=== PATIENT | female | born 1965 | race Caucasian/White ===

== ENCOUNTER 2023-09-07 10:40 | Outpatient (AMB) | payer OTHER, SELFPAY ==
--- NOTE | 2023-09-07 10:37 | MHC.OFFWIV ---
Intake Vital Signs 09/07/23 10:43 Height 5 ft 2 in Weight 127 lb BMI 23.2 BP 120/60 Blood Pressure Location Lt brachial Position Sitting Pulse 51 Pulse Source Pulse Oximeter Temp 98.1 F Temp Source Temporal Artery Scan Pulse Oximetry (%) 99 Oxygen Delivery Method Room Air Intake Visit Reasons: EP neck pain radiates down lft arm Intake Note: pt is here today for neck pain radiates down lft arm started 10 days ago Patient Tobacco Use Status: Never used Tobacco Allergies No Known Allergies Allergy (Verified 09/07/23 10:46) Do you need a note to return to daycare/school/sports/work: Yes HPI EP neck pain radiates down lft arm HPI Details This is a 58 year old female patient who presents today with a 10 day history of left sided neck/trapezius pain which radiates down her shoulder, into axilla, and down upper arm. This does not extend to her hand. No numbness or paresthesias. Reports a squeeezing-type sensation down arm. Denies any trauma or inciting event to this. She has been taking Ibuprofen and applying IcyHot, however this his not helped. History of C5/6, C6/7 disc herniation on the left many years ago. She went to [facility] physical therapy with good effect. [facility] Social History Patient Tobacco Use Status: Never used Tobacco Review of Systems Const All systems reviewed & are unremarkable except as noted in HPI and below Physical Exam Vital Signs: Last Vital Signs Temp 98.1 F 09/07/23 10:43 Pulse 51 09/07/23 10:43 BP 120/60 09/07/23 10:43 Pulse Ox 99 09/07/23 10:43 Oxygen Delivery Method Room Air 09/07/23 10:43 BMI result Body Mass Index 23.2 Const General: cooperative, healthy appearing and no acute distress Nutritional Appearance: average body habitus HEENT Head: Yes normal to inspection Neck Neck: Yes no lymphadenopathy Resp Effort & Inspection: normal respiratory effort Back/Spine/Pelvis Other: spurling positive with increased pain into left side of neck and down shoulder into axilla. 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 Cervical Spine: cervical muscular tenderness (left trap tenderness to palp) and pain with cervical ROM (pain with extension, no C-spine tenderness) Thoracic/Lumbar Spine: thoraco-lumbar ROM normal Skin General skin exam: no rashes or lesions noted Neuro Motor exam (neuro): 5/5 motor strength present throughout and Normal motor muscle tone present throughout Extrem Other: Left shoulder exam: General: Yes capillary refill normal and Yes no clubbing, cyanosis or edema Psych Appearance: grossly normal Mental Status: mental status grossly normal Speech and movement: Normal speech and movement present Assessment & Plan Assessment & Plan (1) Left cervical radiculopathy: Code(s): M54.12 - Radiculopathy, cervical region Plan: Symptoms consistent with a left cervical radiculopathy. Has had disc herniations left C5/6, C6/7 years ago. She did PT with good benefit. Cervical spine XR obtainted today shows degenerative changes at C5-C7. She does not establish care with new PCP Rip [facility] [employer] for several months. I am going to refer her back to [facility] for further evaluation and also for course of physical therapy. In the meantime, we discussed continued conservative measures for this. I am going to start her on a short course of Prednisone and also Cyclobenzaprine at HS. We reviewed indications, use, possible s/e of medications. We discussed using heat application, gentle stretching/ROM exercises, and topical products as needed. She will f/u with [facility] and PCP, and can return to the [place] clinic if needed in the interim if symptoms worsen or new symptoms develop. She agrees to plan. Orders: Orders XR cervical spine 2V Today M54.12 - Radiculopathy, cervical region PT Evaluation and Treatment Today M54.12 - Radiculopathy, cervical region Referrals Orthopedics Referral M54.12 - Radiculopathy, cervical region Medications: New cyclobenzaprine Take one tab at bedtime as needed for muscle pain/spasms. 5 mg PO BEDTIME PRN 10 tabs 0RF muscle spasm M54.12 - Radiculopathy, cervical region prednisone 20 mg PO BID 5 days 10 tabs 0RF M54.12 - Radiculopathy, cervical region Coding Level of Care Code Est Pt Level 4 (50696) Diagnoses Left cervical radiculopathy M54.12
[2023-09-07 10:43] VITALS: BP 120/60; PULSE 51; TEMP 36.7; O2SAT 99; BMI 23.2
== END 2023-09-07 11:54 | disposition home or self-care (01) ==
PROVIDERS: PCP Nurse Practitioner Family; Visit Provider Nurse Practitioner Family
DX: M54.12 Radiculopathy, cervical region (principal)
CPT/HCPCS: 99214

== ENCOUNTER 2023-09-07 10:58 | Outpatient (REF) | payer OTHER, SELFPAY ==
--- NOTE | ~2023-09-07 | XR_ITS ---
EXAMINATION: XR CERVICAL SPINE CLINICAL INFORMATION: Cervical radiculopathy COMPARISON: None available. TECHNIQUE: 3 views of the cervical spine were obtained. FINDINGS: There is straightening of cervical lordosis with narrowing cough C5-C6 and C6-C7 intervertebral disc spaces, no evidence of spondylolysis or listhesis and no uncovertebral osteophytosis. Soft tissues are unremarkable. Odontoid views reveal no asymmetry. XR/XR cervical spine 2V IMPRESSION: Degenerative changes at the level of C5-C7
== END 2023-09-07 10:59 | disposition home or self-care (01) ==
LOC: HO.HMGCX 10:58
PROVIDERS: Visit Provider Nurse Practitioner Family
DX: M54.12 Radiculopathy, cervical region (principal)
CPT/HCPCS: 72040

== ENCOUNTER 2024-01-23 09:54 | Outpatient (AMB) | payer OTHER, SELFPAY ==
--- NOTE | 2024-01-23 10:27 | AM.OFFWIN_ITS ---
Intake Vital Signs 01/23/24 10:28 Height 5 ft 2 in Weight 136 lb BMI 24.9 BP 110/62 Blood Pressure Location Lt brachial Position Sitting Pulse 57 Pulse Source Pulse Oximeter Temp 98.0 F Temp Source Oral Pulse Oximetry (%) 98 Oxygen Delivery Method Room Air Intake Visit Reasons: EP UTI? Intake Note: pt c/o urinary urgency, frequency and discomfort. Ongoing for almost 2 weeks Patient Tobacco Use Status: Never used Tobacco Allergies amoxicillin [From Augmentin] Allergy (Intermediate, Verified 01/23/24 10:36) Rash clavulanic acid [From Augmentin] Allergy (Intermediate, Verified 01/23/24 10:36) Rash Do you need a note to return to daycare/school/sports/work: No HPI EP UTI? HPI Details This note is constructed using voice recognition software. While every effort has been made to ensure accuracy, social worker delinquency prevention errors may have been included. The patient is a 58 year old female who presents to the clinic today with urinary frequency, urgency for the past 2 weeks. She notes that she does have an extensive history bladder issues having had a bladder sling, she is status post hysterectomy, and she has been dealing with hot flashes and postmenopausal symptoms for the past several years. She had been using estradiol cream as prescribed for postmenopausal symptoms, and the symptoms seemed to get better, however when they restarted she did restart her cream about one-week ago. Since restarting the cream she has not had any improvement in the urinary symptoms quite yet. She denies pain with urination, change in odor, volume, collar. She is hydrating well and drinking slightly more to help flush her system through. She does have an appointment coming up with her urogynecologist in March and has an appointment with her primary care provider in the end of February. [facility] Social History Patient Tobacco Use Status: Never used Tobacco Review of Systems Const All systems reviewed & are unremarkable except as noted in HPI and below Physical Exam Vital Signs: Last Vital Signs Temp 98.0 F 01/23/24 10:28 Pulse 57 01/23/24 10:28 BP 110/62 01/23/24 10:28 Pulse Ox 98 01/23/24 10:28 Oxygen Delivery Method Room Air 01/23/24 10:28 BMI result Body Mass Index 24.9 Const General: cooperative, healthy appearing, comfortable, no acute distress and well developed Orientation/consciousness: patient oriented x3 Limitations: no limitations Resp Effort & Inspection: normal respiratory effort and able to speak in complete sentences Neuro General: patient oriented x3 Results AMB Urinalysis, Automated UA Leukoctes 0 Annabella/uL Last Edit by Tamara Smith CCM on 01/23/24 10:54 UA Nitrite Negative Last Edit by Tamara Smith [facility] on 01/23/24 10:54 UA Urobilinogen 0.2 mg/dL Last Edit by Tamara Smith [facility] on 01/23/24 10:54 UA Protein 0 mg/dL Last Edit by Tamara Smith [facility] on 01/23/24 10:54 UA pH 6.0 Last Edit by Tamara Smith [facility] on 01/23/24 10:54 UA Blood 0 Rupesh/uL Last Edit by Tamara Smith [facility] on 01/23/24 10:54 UA Specific [place] 1.010 Last Edit by Tamara Smith [facility] on 01/23/24 10:54 UA Ketone Negative Last Edit by Tamara Smith [facility] on 01/23/24 10:54 UA Bilirubin 0 mg/dL Last Edit by Tamara Smith [facility] on 01/23/24 10:54 UA Glucose 0 mg/dL Last Edit by Tamara Smith [facility] on 01/23/24 10:54 Assessment & Plan Assessment & Plan (1) Urinary frequency: Code(s): R35.0 - Frequency of micturition Plan: In office urinalysis dip inconsistent with UTI. Given patient's extensive history, this is likely more attributed to postmenopausal symptoms. She has restarted her estradiol cream, which I have advised her to continue. Advised her to consider [id number] urinalysis dip test strips to facilitate at- home testing to determine if she needs to have evaluation for urinary tract infection. Advised her to keep her appointment with Urogynecology in March and her appointment with primary care provider next month. Advised return to the clinic should her symptoms persist or worsen for in office evaluation. Plan See above for full details and plan. Orders: Orders AMB Urinalysis Automated Today Z13.9 - Encounter for screening, unspecified Coding Level of Care Code Est Pt Level 3 (19233) Diagnoses Urinary frequency R35.0
[2024-01-23 10:28] VITALS: BP 110/62; PULSE 57; TEMP 36.7; O2SAT 98; BMI 24.9
== END 2024-01-23 11:13 | disposition home or self-care (01) ==
PROVIDERS: PCP Nurse Practitioner Family; Visit Provider Registered Nurse
DX: Z13.9 Encounter for screening, unspecified (principal); R35.0 Frequency of micturition

== ENCOUNTER → 2024-01-23 09:54 | Outpatient (BNVA) | payer OTHER, SELFPAY | PROVIDERS: PCP Nurse Practitioner Family; Visit Provider Nurse Practitioner Family | DX: R35.0 Frequency of micturition (principal); R39.15 Urgency of urination; Z90.710 Acquired absence of both cervix and uterus | CPT/HCPCS: 81003 ==

== ENCOUNTER 2025-03-12 12:19 | Outpatient (AMB) | payer OTHER, SELFPAY ==
[2025-03-12 12:21] VITALS: BP 102/60; PULSE 57; RESP 14; TEMP 36.7; O2SAT 99; BMI 26.0
--- NOTE | 2025-03-12 12:21 | MHC.PC.OV ---
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 Required: No Accompanied by: Self / Same As Patient Allergies amoxicillin (From Augmentin) Allergy (Intermediate, Verified 01/23/24 10:36) Rash clavulanic acid (From Augmentin) Allergy (Intermediate, Verified 01/23/24 10:36) Rash Medication List - Last Reconciled 03/12/25 by ALBARO Barboza imatinib 400 mg PO DAILY Tobacco use date assessed: 03/12/25 Dental Screening Dental Screen Date: 03/12/25 Did you have a dental visit in the last 12 months?: Yes Did you have a dental problem in the last 6 months where you did not have access to dental care?: No Was dental information given to patient?: Patient has dentist 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 History of Present Illness The patient is a 52-year-old male presenting for a follow-up for hypertension. He reports that his home blood pressure readings are generally in the 130s and occasionally in the 120s, which is an improvement compared to his in-office readings which remain elevated. The patient has a known history of sleep apnea. Social History Health Maintenance - Patient will be referred for a full sleep study to evaluate his sleep apnea. Review of Systems Physical Exam General: Cooperative, healthy appearing, comfortable, no acute distress and well developed Orientation: Patient oriented x3 Limitations: No limitations Head: Normal to inspection Ears: Hearing grossly normal bilaterally Nose: Normal external nose present Face and sinus: Normal facial exam Eyes: Appearance normal, both eyes and all related structures Neck: Normal visual inspection and Yes full ROM Respiratory: Normal respiratory effort and able to speak in complete sentences. Clear to auscultation bilaterally Cardiovascular: Regular rate and rhythm. Normal S1 and S2 GI: Normal to inspection. Soft to palpation and nontender Skin: No rashes or lesions noted Neuro: Patient oriented x3 Extremities: Normal to inspection Results - Home Blood Pressure Monitoring: Patient-reported values are in the 130s, and sometimes 120s. Plan 1. Hypertension Although the patient reports improved home blood pressure readings in the 120-130s range, his in-office readings remain elevated. The plan is to increase his amlodipine dosage from 5 mg to 10 mg. He is instructed to recheck his blood pressure at home and report the values via the patient portal or by dropping them off at the office for further adjustments. Fasting labs will be ordered for the near future. 2. Sleep Apnea The patient has a known history of sleep apnea. A referral will be placed for a full sleep study. Discussion Notes I have reviewed the patient's blood pressure readings. Although his home readings are improving, his in-office pressure remains elevated, so I am increasing his amlodipine from 5 mg to 10 mg. I have instructed him to continue monitoring at home and send me the results. I will also order fasting labs and refer him for a full sleep study due to his history of sleep apnea. Patient Instructions - We are increasing your blood pressure medication, amlodipine, from 5 mg to 10 mg. - Please continue to check your blood pressure at home. - Send your blood pressure readings to us through the patient portal or by dropping them off at the office. - We will be ordering some fasting lab work for you to complete soon. - We will also refer you for a full sleep study to check on your sleep apnea. 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 1. Little interest or pleasure in doing things: not at all 2. Feeling down, depressed, or hopeless: not at all 3. Trouble falling or staying asleep, or sleeping too much: not at all 4. Feeling tired or having little energy: not at all 5. Poor appetite or overeating: not at all 6. Feeling bad about yourself - or that you are a failure or have let yourself or your family down: not at all 8. Moving or speaking so slowly that other people could have noticed. Or the opposite - being so fidgety or restless that you have been moving around a lot more than usual: not at all 9. Thoughts that you would be better off or of hurting yourself in some way: not at all Depression Screening Interpretation: Negative Depression Screening Done: Yes [id number] - PHQ-9 Billing: Yes Source: Developed by Drs. Casper Reynaga, Page Kovacs, Isrrael Ramirez and colleagues, with an educational morales from [employer]. Thrive Questionnaire Date Thrive assessed: 03/05/25 I am a: Patient What is your living situation today?: I have a steady place to live Within the past 12 months, did the food you bought not last and you didn't have the money to get more?: Never true Within the past 12 months, did you worry whether your food would run out before you got money to buy more?: Never true Do you have trouble paying for medicines?: No Do you have trouble getting transportation to medical appointments?: No Do you have trouble paying your heating and electricity bill?: No Do you have trouble taking care of your child, family member or friend?: No Do you have trouble with day-to-day activities such as bathing, preparing meals, shopping, managing finances, etc.?: No Are you currently unemployed and looking for a job?: No Are you interested in more education?: No Please select the resources that you would like help with: None Currently or been in a relationship where the following occur: No concerns reported THRIVE Score: 0 AUDIT C Alcohol Use Questionnaire (AUDIT-C) 1. How often do you have a drink containing alcohol?: Monthly or less 2. How many drinks containing alcohol do you have on a typical day when you are drinking?: 1 or 2 3. How often do you have six or more drinks on one occasion?: Never Total Score: 1 VIRGEN-7 AMB Questionnaire VIRGEN-7 Date VIRGEN - 7 assessed: 03/12/25 Feeling nervous, anxious, or on edge: 0 = Not at all Not being able to stop or control worryin = Not at all Worrying too much about different things: 0 = Not at all Trouble relaxin = Not at all Being so restless that it is hard to sit still: 0 = Not at all Becoming easily annoyed or irritable: 0 = Not at all Feeling afraid as if something awful might happen: 0 = Not at all Total VIRGEN-7 score (0-4 normal; 5-9 mild; 10-14 moderate; 15-21 severe): 0 Source: Developed by Drs. Casper Reynaga, Page Kovacs, Isrrael Ramirez and colleagues, with an educational morales from [employer]. VIRGEN-7 Assessment Billing VIRGEN-7 Assessment Tool: VIRGEN-7 Assessment [id number] Physical exam (Primary Care) Vital Signs: Last Vital Signs Temp 98.0 F 03/12/25 12:21 Pulse 57 03/12/25 12:21 Resp 14 03/12/25 12:21 BP 102/60 03/12/25 12:21 Pulse Ox 99 03/12/25 12:21 Oxygen Delivery Method Room Air 03/12/25 12:21 BMI result Body Mass Index 26.0 Tobacco/Smoking Status: Tobacco use Status Tobacco use date assessed 03/12/25 03/12/25 12:29 Patient Tobacco Use Status Never used Tobacco 03/12/25 12:29 e-Cigarette/Vaping Use Never Used 03/12/25 12:29 Depression Screening Interpretation: Negative Thrive Assessment: Date of Thrive Assessment Date Thrive assessed 03/05/25 03/12/25 12:29 Currently or been in a relationship where the following occur: No concerns reported Coding Level of Care Code New Pt Prev Care 40-64y(30582) Diagnoses Physical exam Z00.00 Vitamin D deficiency E55.9 Additional Codes VIRGEN-7 Assessment Billing - VIRGEN-7 Assessment Tool: VIRGEN-7 Assessment [id number] ([id number]) PHQ-9 - 75338 - PHQ-9 Billing: Yes ([id number]) Assessment & Plan Assessment & Plan (1) Physical exam: Code(s): Z00.00 - Encounter for general adult medical examination without abnormal findings Category: Medical (2) Vitamin D deficiency: Code(s): E55.9 - Vitamin D deficiency, unspecified Category: Medical Plan . Orders: Orders Complete Blood Count Auto Diff Today Z00.00 - Encounter for general adult medical examination without abnormal findings TSH reflex Free T4 Today Z00.00 - Encounter for general adult medical examination without abnormal findings Lipid Panel Today Z00.00 - Encounter for general adult medical examination without abnormal findings Comprehensive [place]. Panel Fast Today Z00.00 - Encounter for general adult medical examination without abnormal findings UA CC w/rflx Micro + Cult Today Z00.00 - Encounter for general adult medical examination without abnormal findings Vitamin D 25-OH Total Today E55.9 - Vitamin D deficiency, unspecified
--- OUTSIDE RECORDS SUMMARY | 2025-03-12 15:04 | XMS_ITS | Clinical Summary ---
Author Organization [facility] Address [address] [place] [phone] Phone Care Team Providers Care Unix System Administrator Name Role Phone Mauricio Jaeger MD Unavailable [phone] Man Xiong MD Unavailable [phone] Unknown, Unknown Primary Care Provider Unavai lable Allergies Active Allergy Reactions Criticality Noted Date Comments Amoxicillin-Pot Clavulanate Rash Low 02/16/20 18 Medications multivitamin per tablet ONE DAILY Orally Active Saccharomyces boulardii (PROBIOTIC, S.BOULARDII, ORAL)Indication s:one daily Take by mouth. Indications: one daily Active imatinib (GLEEVEC) 400 MG tablet Take 1 tablet by mouth daily. 3 9 Active estradioL (ESTRACE) 0.01 % (0.1 mg/gram) vaginal cream U 1 GRAM VAGINALLY D HS TK Q NIGHT FOR 2 WKS THEN 2 TIMES A WK 0 Active calcium carbonate-vitam in D3 (CALTRATE 600 PLUS D) 600 mg (1,500 mg)-800 unit Chew Take 1 tablet by mouth 2 (two) times a day. Active lansoprazole (PREVACID) 15 MG capsule Take 15 mg by mouth daily. 3 Active Active Problems Problem Noted Date Diagnosed Date Chronic myeloid leukemia 03/01/2023 023 History of cholecystectomy 03/01/2023 Overview (03/01/2023): January 2023 Slow transit constipation 02/21/2020 CML (chronic myelocytic leukemia) 02/16/2019 Immunizations Immunization Administration Dates Next Due COVID-19 (Pre-02/28) Pfizer Vaccine, Bivalent 12+ 02/01/2023,01/22/2022 COVID-19 (Pre-02/28) Pfizer Vaccine, mRNA, PF 02/13/2021,05/18/2020,04/27/2020 INFLUENZA, SPLIT VIRUS, TRIV ALENT W/ PRESERVATIVE IM 02/18/2016,02/20/2014 Influenza Quadrivalent MDCK Preservative Free IM 02/14/2018 Influenza Quadrivalent Prese rvative Free IM 02/11/2023,02/12/2022,02/13/2021,02/09,02/07/2019,02/21/2017 Influenza, Unspecified Formulation 02/12/2022 Pneumococcal conjugate PCV13 11/01/2018 Pneumococcal polysaccharide PPSV23 12/27/2018 Td (adult) 5 Lf Tetanus Toxo id, PF, Adsorbed 02/06/2007 Tdap 03/01/2013 Family History Medical History Relation Comments Throat cancer Brother 1 smoker/drinker No Known Problems Brother 2 Ankylosing spondylitis Daughter Crohn's disease Daughter HLA-B27 positive Daughter Juvenile polyarthritis Daughter Dementia Mother Breast cancer Sister ADD / ADHD Son Amputation Son MVA 2018 right l eg Relation Status Comments Brother 1 Brother 2 Alive Daughter Alive Father (Age 93) Mother (Age 91) Sister Alive Son Alive Social History Tobacco Use Types Packs/Day Years Used Date Smoking Tobacco: Never Smokeless Tobacco: Never Tobacco Cessation:Counseling Given: Not Answered Alcohol Use Standard Drinks/Week Comments Yes 0 (1 standard drink = 0.6 oz pur e alcohol) 1-2 drinks, monthly or less Child or Family Care Answer Date Record ed Do you have problems with on e of the following making it difficult for you to work, study, or receive health care? No 03/01/2023 Education Answer Date Recorded Are you interested in more education? Not on marco a e 03/05/2025 Are you concerned about learning? Not on file 03/05/2025 No 03/05/2025 No 03/05/2025 Food Answer Date Recorded Within the past 6 months we worried whether our food would run out before we got money to buy more. Never True 03/01/2023 Within the past 6 months the food we bought just didn't last and we didn't have enough money to get more. Never True Residential Stability Answer Date Recor ded What is your housing situation today? I have olivier landers 03/01/2023 How many times have you move d in the past 12 months? Zero (I did not move) 03/01/2023 Paying for Meds Answer Date Recorded Do you have trouble paying for medicines? No 03/01/2023 Paying Utility Bills Answer Date Record ed Do you have trouble paying your heating or elect ricity bill? No 03/01/2023 Transportation Answer Date Recorded Has the lack of transportati on kept you from medical appointments or from getting medications? No 03/01/2023 Unemployment Answer Date Recorded Are you currently unemployed or working on a part-time or temporary basis, and looking for work? No 02/26/2022 Digital Access Answer Date Recorded No 03/05/2025 No 03/05/2025 Reliable internet access at home? Not on file 03/05/2025 Device with a working camera? Not on file Intimate Partner Violence Answer Date R ecorded Denied Basic Needs Not on file 03/01/2023 In the past 12 months have y ou been in a relationship with a person who hurts, threatens, or tries to control you? No 03/01/2023 Worried food would run out Not on file 03/01 In the past 12 months have y ou been in a relationship with a person who hurts, threatens, or tries to control you? No 03/01/2023 Comments Unknown Sex and Gender Information Value Date Recorded Sex Assigned at Not on file Legal Sex Female 9:40 PM EDT Gender Identity Not on file Sexual Orientation Not on file Last Filed Vital Signs Vital Sign Reading Time Taken Comments Blood Pressure 108/58 03/01/2023 9:03 AM EDT Pulse 64 03/01/2023 9:03 AM EDT Temperature 36.2 C (97.1 F) 02/26/2022 9:01 AM EDT Respiratory Rate 16 03/01/2023 9:03 AM EDT Oxygen Saturation 98% 03/01/2023 9:03 AM EDT Inhaled Oxygen Concentration - - Weight 63.3 kg (139 lb 9.6 oz) 03/01/2023 9:03 A M EDT Height 159.4 cm (5' 2.75 ) 03/01/2023 9:03 AM ED T Body Mass Index 24.93 03/01/2023 9:03 AM EDT Plan of Treatment Health Maintenance Due Date Last Done Comments ZOSTER VACCINES (1 of 2) 1985 COLOGUARD 2011 FIT TEST 2011 FOBT 2011 SIGMOIDOSCOPY 2011 VIRTUAL COLONOSCOPY 2011 Adult Td,Tdap Booster 03/01/2023 03/01/2013, 007 PNEUMOCOCCAL VACCINES (50+ years) (3 of 3 - PPSV23, PCV20 or PCV21) 12/28/2023 12/27/2018, 11/01/2018 LIPID PANEL 02/22/2024 02/21/2019, 02/06, 02/21/2019, Additional history exists DEPRESSION SCREENING 03/01/2024 03/01/2023 INFLUENZA VACCINE (#1) 2024 , 02/12/2022, 02/12/2022, Additional history exists COVID-19 VACCINE (2024- season) 2025 02/01/2023, 01/22/2022, 02/13/2021, Additional history exists MAMMOGRAM 07/13/2025 07/14/2023, 0310/2022, 07/08/2021, Additional history exists COLONOSCOPY 07/29/2030 07/29/2020 COLORECTAL CANCER SCREENING 07/29/2030 RSV VACCINE (1 - 1-dose 75+ series) 2041 HIV ONE-TIME SCREENING (18-65 YEARS) Completed 02/21/2019 HEPATITIS C SCREENING Completed 02/27/2021 SMOKING STATUS SCREENING (Once After 26 Yrs) Completed 03/01/2023 HEPATITIS A VACCINES Aged Out No long er eligible based on patient's age to complete this topic HIB VACCINES Aged Out No longer eligi ble based on patient's age to complete this topic MENINGOCOCCAL VACCINES (ACWY) Aged Out No longer eligible based on patient's age to complete this topic MENINGOCOCCAL VACCINES (B) Aged Out N o longer eligible based on patient's age to complete this topic Medical Devices Not on file Procedures Procedure Name Priority Date/Time Associated Diagnosis Comments HM MAMMOGRAPHY Routine 07/14/2023 4:16 PM EST HEPATITIS C ANTIBODY, QUALITATIVE Routine 02/27/2021 HM COLONOSCOPY FOR RESULT ENTRY ONLY Routine 07/29/2020 OUTSIDE TOTAL CHOLESTEROL Routine 02/21/2019 OUTSIDE HIV Routine 02/21/2019 from Last 3 Months or Most Recently Relevant to Health Maintenance Results * HM MAMMOGRAPHY FOR RESULT ENTRY ONLY (07/14/2023 4:16 PM EST) Historical Provider HEALTH MAINTENANCE Final Result * Hepatitis C antibody, qualitative (02/27/2021) Letitia Perry NP LAB BLOOD BKR ORDERABLES Edited Result - Final * HM COLONOSCOPY FOR RESULT ENTRY ONLY (07/29/2020) Result [facility] Historical Provider HEALTH MAINTENANCE Final Result * OUTSIDE HIV TEST (02/21/2019) HIV - External Neg Result [facility] Provider LAB BLOOD ORDERABLES Dawna l Result * Outside Total Cholesterol (02/21/2019) Cholesterol, total - External 145 <=200 mg/dL Result [facility] Provider LAB BLOOD ORDERABLES Dawna l Result from Last 3 Months or Most Recently Relevant to Health Maintenance Insurance [facility] S S S S [facility] PPO PHCS Care Teams Unix System Administrator Relationship Specialty Start Date End Date Unknown, Unknown, MD PCP - General 07/15/23 Mauricio Jaeger MD [address] [place] [id number] [email or web address] Insurance Assigned Provider Internal Medicine 06/30/18 Man Xiong MD [address] [place] [address] [place] [address] Gynecology 02/16/19 Additional Source Comments The information contained in this document represents components of the legal health record. It is not the complete legal health record.[facility]
== END 2025-03-12 13:00 | disposition home or self-care (01) ==
LOC: HO.HMCC 12:19
PROVIDERS: PCP Nurse Practitioner Family; Visit Provider Nurse Practitioner Family
DX: Z00.00 Encounter for general adult medical examination without abnormal findings (principal); E55.9 Vitamin D deficiency, unspecified

== ENCOUNTER → 2025-03-12 12:19 | Outpatient (BNVA) | payer OTHER, SELFPAY | PROVIDERS: PCP Nurse Practitioner Family; Visit Provider Nurse Practitioner Family | DX: Z00.00 Encounter for general adult medical examination without abnormal findings (principal); I10 Essential (primary) hypertension; G47.30 Sleep apnea, unspecified; E55.9 Vitamin D deficiency, unspecified | CPT/HCPCS: 96127 ==

== ENCOUNTER 2025-03-16 09:27 | Outpatient (REF) | payer OTHER, SELFPAY ==
--- OUTSIDE RECORDS SUMMARY | 2025-03-16 09:30 | XMS_ITS | Clinical Summary ---
Author Organization [facility] Address [address] [place] [phone] Phone Care Team Providers Care Television Director Name Role Phone Mauricio Jaeger MD Unavailable [phone] Man Xiong MD Unavailable [phone] Unknown, Unknown Primary Care Provider Unavai lable [...] VACCINES (50+ years) (3 of 3 - PCV20 or PCV21) 12/28/2023 12/27/2018, 11/01/2018 LIPID PANEL 02/22/2024 02/21/2019, 02/06, 02/21/2019, Additional history exists DEPRESSION SCREENING 03/01/2024 03/01/2023 INFLUENZA VACCINE (#1) 2024 , 02/12/2022, 02/12/2022, Additional history exists COVID-19 VACCINE ( season) 2025 02/01/2023, 01/22/2022, 02/13/2021, Additional history [...] HM COLONOSCOPY FOR RESULT ENTRY ONLY (07/29/2020) Historical Provider HEALTH MAINTENANCE Final Result * OUTSIDE HIV TEST (02/21/2019) HIV - External Neg Result [facility] Provider LAB BLOOD ORDERABLES Dawna l Result * Outside Total Cholesterol (02/21/2019) Cholesterol, total - External 145 <=200 mg/dL Result [facility] Provider LAB BLOOD ORDERABLES Dawna l Result from Last 3 Months or Most Recently Relevant to Health Maintenance Insurance [facility] PPO [facility] [address] [place], [place] [address]S S S [facility] P[facility]CS Care Teams Television Director Relationship Specialty Start Date End Date Unknown, Unknown, MD PCP - General 07/15/23 Mauricio Jaeger MD [address] [place] [id number] [email or web address] Insurance Assigned Provider Internal Medicine 06/30/18 Man Xiong MD [address] [place] [address] [place] [address] Gynecology 02/16/19 Additional Source Comments The information contained in this document represents components of the legal health record. It is not the complete legal health record.[facility]
[2025-03-16 11:25] LABS: MANUAL DIFF FLAG NO
[2025-03-16 11:48] LABS: Hematocrit 35.0 % (37.0-47.0); Hemoglobin 11.2 g/dl (12.0-16.0); Imm Gran Abs Auto 0.00 X10*3/uL (0.00-0.03); Imm Gran Pct Auto 0.0 % (0.0-0.4); Lymphocytes Absolute Auto 1.1 X10*3/uL (1.2-4.9); Mean Corpuscular HGB Conc 32.0 g/dl (31.0-35.0); Mean Corpuscular Hemoglobin 33.3 pg (27.0-33.0); Mean Corpuscular Volume 104.2 fL (80.0-98.0); NRBC Abs Auto 0.000 X10*3/uL (0.0-0.012); NRBC Pct Auto 0.0 /100WBC (0.0-0.2); Platelet Count 241 X10*3/uL (160-400); Red Blood Count 3.36 X10*6/uL (4.20-5.50); White Blood Count 3.1 X10*3/uL (4.8-10.8)
[2025-03-16 11:53] LABS: Appearance Urine Clear; Glucose Urine UA Negative (Negative); PH 6.5 (5.0-9.0); Specific Gravity - Urine 1.020 (1.005-1.025); UMIC TRIGGER UACC YES
[2025-03-16 12:01] LABS: Alanine Aminotransferase 26 U/L (0-31); Albumin Level 4.1 g/dL (3.5-5.0); Alkaline Phosphatase 111 U/L (39-117); Anion Gap 9 (12-20); Aspartate Amino Transferase 38 U/L (5-31); Blood Urea Nitrogen 12 mg/dL (9-16); Calcium 8.5 mg/dL (8.4-10.2); Carbon Dioxide 27 mmol/L (22-29); Chloride 108 mmol/L (96-108); Cholesterol 134 mg/dL (<200); Estimated Glomerular Filt Rate > 60; HDL Cholesterol 57 mg/dL (>40); Potassium 4.0 mmol/L (3.3-5.1); Sodium 140 mmol/L (135-145); Total Protein 6.8 g/dL (6.5-8.0); Triglycerides 48 mg/dL (<150)
== END 2025-03-16 09:28 | disposition home or self-care (01) ==
LOC: HO.HMGCLDS 09:27
PROVIDERS: PCP Nurse Practitioner Family; Visit Provider Nurse Practitioner Family
DX: Z00.00 Encounter for general adult medical examination without abnormal findings (principal); Z13.29 Encounter for screening for other suspected endocrine disorder; Z13.6 Encounter for screening for cardiovascular disorders; E55.9 Vitamin D deficiency, unspecified
CPT/HCPCS: 36415; 80053; 80061; 81001; 82306; 84443; 85025